=== PATIENT | male | born 1960 | race American Indian/Alaskan Native ===

== ENCOUNTER 2021-11-05 00:37 | Emergency (ER) | payer SELFPAY ==
[2021-11-05] MEDS ORDERED: ONDANSETRON 4 MG/2 ML INJ IV ONE (00:50)
[2021-11-05] MEDS ORDERED: MORPHINE 4 MG/1 ML INJ IV ONE (00:50)
[2021-11-05] MEDS ORDERED: SODIUM CHLORIDE 0.9% 1000 ML 1,000 ML IV ONE (00:50)
[2021-11-05] MEDS ORDERED: ceFAZolin/NS 1 GM/50 ML 1 GM/50 ML BAG IV ONE (00:51)
[2021-11-05] MEDS ORDERED: HYDROmorphone 1 MG/1 ML INJ IV ONE (00:58)
[2021-11-05 01:08] LABS: Basophils % (Auto) 0.6 % (0.0-1.8); Eosinophils # (Auto) 0.1 K/mm3 (0.0-0.4); Eosinophils % (Auto) 1.6 % (0.0-4.3); Hematocrit 48.5 % (35.5-45.6); Hemoglobin 15.7 gm/dl (11.8-15.2); Lymphocytes # (Auto) 1.7 K/mm3 (1.2-5.4); Lymphocytes % (Auto) 20.2 % (13.4-35.0); Mean Corpuscular HGB Conc 32 % (32-34); Mean Corpuscular Volume 93 fl (84-94); Monocytes # (Auto) 1.2 K/mm3 (0.0-0.8); Monocytes % (Auto) 14.8 % (0.0-7.3); Platelet Count 262 K/mm3 (140-440); Red Blood Count 5.24 M/mm3 (3.65-5.03); Red Cell Distribution Width 14.6 % (13.2-15.2)
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
[2021-11-05 01:20] VITALS: BP 146/86
[2021-11-05 01:21] LABS: INR 0.86 (0.87-1.13)
[2021-11-05 01:31] LABS: Albumin 4.9 g/dL (3.9-5); Calcium 9.5 mg/dL (8.4-10.2)
== END 2021-11-05 03:34 | disposition hospice, inpatient (51) ==
LOC: ED 00:37
DX: S82.92XB Unspecified fracture of left lower leg, initial encounter for open fracture type I or II (principal); W34.09XA Accidental discharge from other specified firearms, initial encounter; Y93.89 Activity, other specified; Y92.89 Other specified places as the place of occurrence of the external cause; Y99.8 Other external cause status
CPT/HCPCS: 36415; 73590; 80053; 85025; 85610; 86850; 86900; 86901; 96374; 96375; 99285; J1170